=== PATIENT | female | born 1960 | race Caucasian/White ===

== ENCOUNTER 2017-04-19 11:03 | Emergency (ER) | payer OTHER ==
[~2017-04-19] VITALS: Ht 157.5 cm; Wt 45.4 kg
--- NOTE | ~2017-04-19 | CR229 ---
[facility] A Service of [facility] & [facility] RADIOLOGY TEXT RESULTS PATIENT: ROBLES GUERRERO LOCATION: CFT[facility] : 64 UNIT #: [id number] AGE: [address]: Mary Kenyon APRN SEX: F ORDER DR: [id number] [place], [place] [address] [id number] E MR#: [id number] Acc #: [id number] NAME: ROBLES GUERRERO : 1960 SEX: F STUDY DATE/TIME: 04/19/2017 12:34 UNIT: [facility] ROOM: STUDY DESCRIPTION: CR Shoulder Min 2 View Lt Attending Physician: Mary Kenyon A.P.R.N. Ordering Physician: [facility] MEDICAL IMAGING REPORT This report is preliminary unless electronic signature is present EXAM Left shoulder 3 views INDICATIONS Left shoulder pain for 1 day after injuring it. COMPARISON STUDIES No comparisons are available. FINDINGS There is an impacted fracture of the neck of the humerus. No evidence for dislocation. Associated soft tissue swelling of the upper arm. IMPRESSION Impacted fracture of the humeral neck. Dictated by... Neal August M.D. THIS IS AN ELECTRONICALLY VERIFIED REPORT Neal August M.D. at 04/20/2017 12:10 PM ARS/pcl TD: 04/19/2017 16:21 JOB #: [id number] MEDICAL IMAGING REPORT Page 1 of 1 COPY
--- NOTE | ~2017-04-19 | CR156 ---
[facility] A Service of [facility] & [facility] RADIOLOGY TEXT RESULTS PATIENT: RBOLES GUERRERO LOCATION: CFTX : 64 UNIT #: [id number] AGE: [address]: Mary Kenyon APRN SEX: F ORDER DR: [id number] [facility]. [place], [place] [address] [id number] E MR#: [id number] Acc #: [id number] NAME: ROBLES GUERRERO : 1960 SEX: F STUDY DATE/TIME: 04/19/2017 12:35 UNIT: [facility] ROOM: STUDY DESCRIPTION: CR Humerus Min 2 View Lt Attending Physician: Mary Kenyon A.P.R.N. Ordering Physician: [facility] MEDICAL IMAGING REPORT This report is preliminary unless electronic signature is present EXAM Left humerus 2 views INDICATIONS Left humerus pain after being injured yesterday. COMPARISON STUDIES No comparisons. FINDINGS Impacted fracture of the humeral neck. Associated soft tissue swelling. No other fractures. IMPRESSION Impacted fracture of the humeral neck. Dictated by... Neal August M.D. THIS IS AN ELECTRONICALLY VERIFIED REPORT Neal August M.D. at 04/20/2017 12:10 PM ARS/pcl TD: 04/19/2017 16:28 JOB #: [id number] MEDICAL IMAGING REPORT Page 1 of 1 COPY
[~2017-04-19 11:03] MED LIST: ALPRAZOLAM PO; ZOLOFT PO
== END 2017-04-19 13:59 | disposition home or self-care (01) ==
LOC: CFTX 11:03 → CED 11:03 → CFTX 12:32
DX: S42.211A Unspecified displaced fracture of surgical neck of right humerus, initial encounter for closed fracture (principal); I10 Essential (primary) hypertension; F41.9 Anxiety disorder, unspecified; F17.210 Nicotine dependence, cigarettes, uncomplicated; V13.4XXA Pedal cycle driver injured in collision with car, pick-up truck or van in traffic accident, initial encounter; Y92.410 Unspecified street and highway as the place of occurrence of the external cause
CPT/HCPCS: 29105; 73030; 73060; 99283